=== PATIENT | male | born 1995 | race Caucasian/White ===

== ENCOUNTER 2018-05-20 22:18 | Emergency (ER) | payer BC ==
--- NOTE | 2018-05-20 23:19 | EDM.PDOC ---
ED HPI GENERAL MEDICAL PROBLEM - General Chief Complaint: ENT Problem Stated Complaint: RIGHT EYE HURTS Time Seen by Provider: 05/20/18 22:52 Source of Information: Reports: Patient History Limitations: Reports: No Limitations - History of Present Illness INITIAL COMMENTS - FREE TEXT/NARRATIVE: The patient presents with right eye discomfort. 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 The pain started about 4 hours ago. He may have a little blurred vision in that eye. 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 [No Known Home Meds] 11/16/14 [History] Past Medical History - Past Surgical History Musculoskeletal Surgical History: Reports: Shoulder Surgery, Other (See Below) Other Musculoskeletal Surgeries/Procedures:: hand reconstruction Social & Family History - Tobacco Use Smoking Status *Q: Never Smoker - Caffeine Use Caffeine Use: Reports: None - Recreational Drug Use Recreational Drug Use: No ED ROS ENT - Review of Systems Review Of Systems: See Below Constitutional: Reports: No Symptoms HEENT: Reports: Eye Pain Respiratory: Reports: No Symptoms Cardiovascular: Reports: No Symptoms Endocrine: Reports: No Symptoms GI/Abdominal: Reports: No Symptoms : Reports: No Symptoms Musculoskeletal: Reports: No Symptoms ED EXAM, ENT - Physical Exam Exam: See Below Exam Limited By: No Limitations General Appearance: Alert, No Apparent Distress Eye Exam: Right Eye: Foreign Body (To the medial eye), Bilateral Eye: EOMI, PERRL Ears: Normal External Exam Nose: Normal Inspection Head: Atraumatic, Normocephalic Neck: Normal Inspection Respiratory/Chest: No Respiratory Distress ED EYE PROCEDURE - Eye Procedure Alcaine Drops Administered: Yes (Proparacaine) Eye FB Removal: Other (Eye spud) Eye Irrigated w/ Saline (ccs): 5 Course - Vital Signs Last Recorded V/S: Last Vital Signs Temp 98.4 F 05/20/18 22:24 Pulse 100 05/20/18 22:24 Resp 16 05/20/18 22:24 BP 128/93 H 05/20/18 22:24 Pulse Ox 100 05/20/18 22:24 - Re-Assessments/Exams Free Text/Narrative Re-Assessment/Exam: 05/20/18 23:21 The patient had a piece of metal in his right eye. I removed it with an eye spud. I will get him on some cipro drops. Departure - Departure Time of Disposition: 23:25 Disposition: Home, Self-Care 01 Condition: Good Clinical Impression: Corneal FB (foreign body) Qualifiers: Encounter type: initial encounter Laterality: right Qualified Code(s): T15.01XA - Foreign body in cornea, right eye, initial encounter - Discharge Information Referrals: PCP,None [Primary Care Provider] - Additional Instructions: Use the cipro drops 1 drop every 4 hours while awake for 1 week. Please return if you are worse. Tylenol or motrin for pain.
== END 2018-05-20 23:32 | disposition home or self-care (01) ==
LOC: JD.ED 22:18
DX: T15.01XA Foreign body in cornea, right eye, initial encounter (principal)
CPT/HCPCS: 65205; 65220; 65222; 99283-25

== ENCOUNTER 2020-05-09 21:01 | Emergency (ER) | payer BC ==
[2020-05-09] MEDS ORDERED: Fluorescein 1 MG Ophth Strip EYERT ONE (21:25)
[2020-05-09] MEDS ORDERED: Proparacaine 0.5% Ophth Soln 15 ML Bottle EYERT STA (22:45)
[2020-05-09] MEDS ORDERED: Erythromycin Base 0.5% Ophth Oint 1 GM Tube EYERT STA (23:08)
--- NOTE | 2020-05-09 23:25 | EDM.PDOC ---
ED HPI GENERAL MEDICAL PROBLEM - General Chief Complaint: Eye Problems Stated Complaint: EYE PAIN Time Seen by Provider: 05/09/20 21:24 Source of Information: Reports: Patient, Family (Mother) History Limitations: Reports: No Limitations - History of Present Illness INITIAL COMMENTS - FREE TEXT/NARRATIVE: Mr. Sanon is a very pleasant 24-year-old gentleman with no chronic medical problems, who now presents to the ED after developing a burning sensation and foreign body sensation to his right eye this morning. 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 Here in the ED, the patient's initial BP is found to be mildly elevated at 148/89, otherwise, he is hemodynamically stable, afebrile, saturating 97% on room air. Other than the patient's right eye pain, the patient denies recent fever, chills, sore throat, ear pain, nasal or sinus congestion, cough, dyspnea, chest pain, palpitations, nausea, vomiting, constipation, diarrhea, abdominal pain, urinary symptoms, recent weight gain or weight loss, recent bloody bowel movements or black bowel movements, recent joint aches, headaches, or rashes. The patient does not have a PCP. Right Eye Pain Score (Numeric/FACES): 6 - Related Data Allergies Allergy/AdvReac Type Severity Reaction Status Date / Time No Known Allergies Allergy Verified 05/09/20 21:16 Home Meds: Home Meds . [No Known Home Meds] 10/14/15 [History] Past Medical History Endocrine/Metabolic History: Reports: Obesity/BMI 30+ - Past Surgical History HEENT Surgical History: Reports: Oral Surgery (wisdom teeth extraction), Other (See Below) (Left mandible surgery) Musculoskeletal Surgical History: Reports: Shoulder Surgery (right, arthroscopic), Other (See Below) (Left hand reconstruction) Social & Family History - Tobacco Use Smoking Status *Q: Never Smoker - Caffeine Use Caffeine Use: Reports: Coffee - Alcohol Use Alcohol Use History: Yes Alcohol Use Frequency: Rarely - Recreational Drug Use Recreational Drug Use: No - Living Situation & Occupation Living situation: Reports: Single, Alone 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 ED EXAM GENERAL W FULL EYE - Physical Exam Exam: See Below Exam Limited By: No Limitations General Appearance: Alert, WD/WN, No Apparent Distress Eye Exam: Bilateral Eye: EOMI Pupils: Normal Accommodation Ears: Normal External Exam, Normal Canal, Hearing Grossly Normal, Normal TMs Nose: Normal Inspection, Normal Mucosa, No Blood Throat/Mouth: Normal Inspection, Normal Lips, Normal Teeth, Normal Gums, Normal Oropharynx, Normal Voice, No Airway Compromise Head: Atraumatic, Normocephalic Neck: Normal Inspection, Supple, Non-Tender, Full Range of Motion Respiratory/Chest: No Respiratory Distress, Lungs Clear, Normal Breath Sounds, No Accessory Muscle Use, Chest Non-Tender Cardiovascular: Normal Peripheral Pulses, Regular Rate, Rhythm, No Edema, No Gallop, No JVD, No Murmur, No Rub GI/Abdominal: Normal Bowel Sounds, Soft, Non-Tender, No Organomegaly, No Distention, No Abnormal Bruit, No Mass (Male) Exam: No Hernia, Normal Inspection, Normal Prostate, Circumcised (Female) Exam: Normal External Exam, Normal Speculum Exam, Normal Bimanual Exam Rectal (Males) Exam: Normal Exam, Normal Rectal Tone, Prostate Normal Rectal (Female) Exam: Normal Exam, Normal Rectal Tone Back Exam: Normal Inspection, Full Range of Motion, NT Extremities: Normal Inspection, Normal Range of Motion, Non-Tender, Normal Capillary Refill, No Pedal Edema Neurological: Alert, Oriented, CN II-XII Intact, Normal Cognition, Normal Gait, Normal Reflexes, No Motor/Sensory Deficits Psychiatric: Normal Affect, Normal Mood Skin Exam: Warm, Dry, Intact, Normal Color, No Rash Lymphatic: No Adenopathy Course - Vital Signs Last Recorded V/S: Last Vital Signs Temp 36.4 C 05/09/20 21:07 Pulse 98 05/09/20 21:07 Resp 18 05/09/20 21:07 BP 148/89 H 05/09/20 21:07 Pulse Ox 97 05/09/20 21:07 - Orders/Labs/Meds Meds: Medications Discontinued Medications Generic Name Dose Route Start Last Admin Trade Name Freq PRN Reason Stop Dose Admin Erythromycin 1 gm 05/09/20 23:08 05/09/20 23:26 Erythromycin 0.5% Ophth Oint EYERT 05/09/20 23:09 1 gm ONETIME STA Administration Fluorescein Sodium 1 mg 06/25/20 21:25 05/09/20 21:33 Ful-Eugenia EYERT 05/09/20 21:26 1 mg ONETIME ONE Administration Proparacaine HCl 1 ml 05/09/20 22:45 05/09/20 23:04 Proparacaine 0.5% Ophth Soln EYERT 05/09/20 22:46 1 drop ONETIME STA Administration - Re-Assessments/Exams Free Text/Narrative Re-Assessment/Exam: 05/09/20 23:07 As above, examination with fluorescein under a Wood's lamp revealed a small corneal abrasion at the periphery of his cornea the 4 o'clock position. Under slit lamp examination, I found a rust colored foreign body just medial to the pupil. I was able to dislodge the foreign body using a 27-gauge needle, however, the patient blinked and removed the foreign body before I was able to pick it up with a moistened cotton tip swab. No rust ring was left behind, indicating that the foreign body was likely not metal. Nilo ROBERT will instill some erythromycin ointment into the patient's right eye, show him how to do it, and give him the tube. If he is still having a foreign body sensation after 3 d ays, I would like him to follow-up with his eye doctor. Departure - Departure Time of Disposition: 23:09 Disposition: Home, Self-Care 01 Condition: Good Clinical Impression: Foreign body of right eye, Corneal abrasion, right - Discharge Information *PRESCRIPTION DRUG MONITORING PROGRAM REVIEWED*: Not Applicable *COPY OF PRESCRIPTION DRUG MONITORING REPORT IN PATIENT SADE: Not Applicable Instructions: Eye Foreign Body, [id number], Corneal Abrasion, [id number] Referrals: PCP,None [Primary Care Provider] - Forms: ED Department Discharge Additional Instructions: You were seen in the emergency room after developing a burning and foreign body sensation in your right eye this morning. On examination, a small corneal abrasion was found at the periphery of your cornea, at the 4 o'clock position, and a foreign body was found just medial to your pupil. The foreign body was dislodged with a needle, however, you blinked before I was able to recover it with a moistened cotton tip swab. Your nurse showed you how to instill the antibiotic ointment in your eye. You may instill a 1 cm strip up to 6 times a day, as needed for discomfort. Your eye should be feeling completely back to normal after 3 days. If it is not, we recommend that you follow-up with an eye doctor. Any other problems, please do not hesitate to return to the ER. Sepsis Event Note (ED) - Evaluation Sepsis Screening Result: No Definite Risk
== END 2020-05-09 23:30 | disposition home or self-care (01) ==
LOC: JD.ED 21:01
DX: T15.01XA Foreign body in cornea, right eye, initial encounter (principal); E66.9 Obesity, unspecified; Z68.31 Body mass index [BMI] 31.0-31.9, adult
CPT/HCPCS: 99283; A9270

== ENCOUNTER 2022-11-22 13:05 | Emergency (ER) | payer BC | END 2022-11-22 15:50 | disposition home or self-care (01) | LOC: JD.ED 13:05 | DX: M54.50 Low back pain, unspecified (principal); Z79.899 Other long term (current) drug therapy | CPT/HCPCS: 72100; 72100-26; 81001; 99283 ==

== ENCOUNTER 2024-07-04 18:32 | Emergency (ER) | payer BC ==
[2024-07-04] MEDS: Lidocaine 1% 10 ML MDV INJECT ONE (21:14)
== END 2024-07-04 21:56 | disposition home or self-care (01) ==
LOC: JD.ED 18:32
DX: S61.411A Laceration without foreign body of right hand, initial encounter (principal); E66.9 Obesity, unspecified; Z79.899 Other long term (current) drug therapy; Z68.34 Body mass index [BMI] 34.0-34.9, adult; W27.0XXA Contact with workbench tool, initial encounter
CPT/HCPCS: 12001; 99283; J3490

== ENCOUNTER 2025-08-06 11:55 | Emergency (ER) | payer BC ==
[2025-08-06] MEDS ORDERED: Sodium Chloride 0.9% 10 ML Syringe FLUSH PRN (12:18)
[2025-08-06 12:35] LABS: BASOPHILS ABSOLUTE AUTO 0.1 K/mm3 (0.0-0.2); BASOPHILS PERCENT AUTO 0.9 % (0.0-1.0); EOSINOPHILS ABSOLUTE AUTO 0.1 K/mm3 (0.0-0.4); EOSINOPHILS PERCENT AUTO 1.4 % (0.0-6.0); IMMATURE GRAN ABSOLUTE AUTO 0.03 K/mm3 (0.00-0.05); IMMATURE GRAN PERCENT AUTO 0.5 % (0.0-0.4); LYMPHOCYTES ABSOLUTE AUTO 1.8 K/mm3 (1.0-4.8); LYMPHOCYTES PERCENT AUTO 30.7 % (24.0-44.0); MEAN PLATELET VOLUME 9.7 fl (9.4-12.4); MONOCYTES ABSOLUTE AUTO 0.5 K/mm3 (0.0-0.8); MONOCYTES PERCENT AUTO 8.7 % (0.0-8.0); NEUTROPHILS ABSOLUTE AUTO 3.4 K/mm3 (1.8-7.7); NEUTROPHILS PERCENT AUTO 57.8 % (41.0-71.0); NRBC ABSOLUTE 0.00 (0.00-0.02); NRBC PERCENT 0.0 % (0.0-0.2); PLATELET COUNT,PLT 258 K/mm3 (150-400); RED BLOOD CELL COUNT 4.89 M/mm3 (4.52-5.90); WHITE BLOOD CELL COUNT,WBC 5.83 K/mm3 (3.9-11.3)
[2025-08-06 12:56] LABS: A/G RATIO 1.2 (1-2); ALANINE AMINOTRANSFERASE,ALT 41.0 U/L (16-63); ASPARTATE AMNIOTRANSFERASE,AST 22.0 U/L (15-37); BILIRUBIN TOTAL 0.6 mg/dL (0.2-1.0); BLOOD UREA NITROGEN,BUN 11.0 mg/dL (7-18); CARBON DIOXIDE,CO2 28.0 mEq/L (21-32); CHLORIDE,CL 104.0 mEq/L (98-107); CREATININE 0.9 mg/dL (0.7-1.3); EST CRCL DRUG DOSING (CG) 140.83 mL/min; ESTIMATED GFR 116.0 mL/min (>60); GLUCOSE RANDOM 106.0 mg/dL (70-99); POTASSIUM,K 4.2 mEq/L (3.5-5.1); PROTEIN TOTAL,TP 7.3 g/dl (6.4-8.2); SODIUM,NA 140.0 mEq/L (136-145); TROPONIN I HIGH SENSITIVITY 6.0 pg/mL (<=76)
== END 2025-08-06 14:20 | disposition home or self-care (01) ==
LOC: JD.ED 11:55
DX: R07.89 Other chest pain (principal); E66.9 Obesity, unspecified; Z68.35 Body mass index [BMI] 35.0-35.9, adult; Z79.899 Other long term (current) drug therapy
CPT/HCPCS: 36415; 71045; 80053; 83735; 84484; 85025; 93005; 99285; A9270